=== PATIENT | male | born 1985 | race African-American/Black ===

== ENCOUNTER 2019-12-07 17:41 | Emergency (ER) | payer SELFPAY ==
[~2019-12-07] VITALS: Ht 187.9 cm; Wt 102.0 kg
[2019-12-07] MEDS ORDERED: MUPI15CR11 TP (18:07)
[2019-12-07] MEDS ORDERED: SULF1TAB35 PO (18:07)
--- NOTE | 2019-12-07 18:07 | ED Integumentary General ---
General Stated Complaint: SORE ON LT LEG LOOKS INFECTED Source: patient History of Present Illness Date Seen by Provider: Dec 07, 2019 Time Seen by Provider: 18:03 Initial Comments Pt presents with area of redness on left leg. He hit it 5-6 days ago on a hitch and has an abrasion. He has started to notice some redness and drainage. No fever. Allergies and Home Medications Patient Home Medication List Home Medication List Reviewed: Yes Review of Systems Review of Systems Constitutional: no symptoms reported Respiratory: no symptoms reported Cardiovascular: no symptoms reported Skin: lesions, other (Redness) Physical Exam Vital Signs Capillary Refill : General Appearance: WD/WN, no apparent distress Neck: supple Respiratory: no respiratory distress Skin: other (Abrasion left macias with some surrounding erythema) Departure Impression Primary Impression: Infected abrasion of left lower extremity Disposition: HOME, SELF-CARE Condition: Stable Departure-Patient Inst. Patient Instructions: Cellulitis (Skin Infection), Adult (DC) Scripts Mupirocin Calcium (Mupirocin) 15 Gm Cream..g. 15 GM TP TID for 7 Days, #1 TUBE 0 Refills Prov: TRINIDAD LOW MD 12/07/19 Sulfamethoxazole/Trimethoprim (Bactrim Ds Tablet) 1 Each Tablet 1 EACH PO BID for 7 Days, #14 TAB 0 Refills Prov: TRINIDAD LOW MD 12/07/19 TRINIDAD LOW MD Dec 07, 2019 18:07
[2019-12-07 18:12] VITALS: BP 154/80
--- OUTSIDE RECORDS SUMMARY | 2019-12-07 18:57 | XMS REPORT ---
Author Author Maida ARCOS GISSEL Organization [facility] [place] Address [address] [place] [address] Care Team Providers Care Manager Icu Name Role Phone JOSSELYN GISSEL Unavailable PROBLEMS Unknown Problems ALLERGIES No Known Allergies ENCOUNTERS Encounter Location Date Diagnosis [facility] [place] [address] [facility] [id number] [place] [address] Sep, Acute pain of right knee M25 .561 IMMUNIZATIONS No Known Immunizations SOCIAL HISTORY Never Assessed REASON FOR VISIT Pain (acute) knee Rt knee pain after playing basketball a day ago, does have so me swelling and pain, states painful to walk on, when he landed on knee he heard some popping, had injury to same knee in 2009 [facility] PLAN OF CARE Activity Details Follow Up 2 Weeks if not better Reason :knee pain VITAL SIGNS Height 74 in 2017-10-10 Weight 233.4 lbs 2017-10-10 Temperature 98.4 degrees Fahrenheit 2017-10-10 Heart Rate 86 bpm 2017-10-10 Respiratory Rate 20 2017-10-10 BMI 29.96 kg/m2 2017-10-10 Blood pressure systolic 122 mmHg 2017-10-10 Blood pressure diastolic 70 mmHg 2017-10-10 MEDICATIONS Medication Instructions Dosage Frequency Start Date End Date Duration S tatus Knee Immobilizer 22" 1 as directed Sep, 4 weeks Active Tramadol HCl 50 mg Orally every 6 hrs 1 tablet as needed 6h 2 0 Sep, 2017 Sep, 07 days Active Naproxen 500 mg Orally every 12 hrs 1 tablet with food or milk as n eeded 12h Sep, Oct, 14 days Active RESULTS Name Result Date Reference Range Xray : Knee, Right 3 views (IN HOUSE) 2017-10-10 PROCEDURES Procedure Date Ordered Result Body Site X-RAY EXAM OF KNEE, 3 October 10, 2017 INSTRUCTIONS MEDICATIONS ADMINISTERED No Known Medications MEDICAL (GENERAL) HISTORY Type Description Date Medical History borderline diabetes Medical History 2009 knee injury--physical therapy
--- OUTSIDE RECORDS SUMMARY | 2019-12-07 18:57 | XMS REPORT | Continuity of Care Document ---
Author Author The Maida Estevez Organization [facility] Address Unknown Phone Unavailable Allergies There is no data. Medications There is no data. Problems There is no data. Procedures There is no data. Results There is no data. Encounters ACCT No. Visit Date/Time Discharge Status Pt. Type Provider Facility Loc./Unit Complaint [id number] 05/31/2018 11:20:00 05/31/2018 23:59: 59 CLS Outpatient [facility] REGAN LAC [id number] 12/07/2019 17:44:[address] Emergency DEVANTE FALL, TRINIDAD [facility] FS SORE ON LT LEG LOOKS INFECTE D
== END 2019-12-07 18:12 | disposition home or self-care (01) ==
LOC: ER FS 17:44
DX: S80.812A Abrasion, left lower leg, initial encounter (principal); L08.9 Local infection of the skin and subcutaneous tissue, unspecified; W22.8XXA Striking against or struck by other objects, initial encounter
CPT/HCPCS: 99282